=== PATIENT | male | born 1940 | race African-American/Black ===

== ENCOUNTER 2018-03-23 11:37 | Emergency (ER) | payer OTHER ==
--- NOTE | 2018-03-23 11:53 | ER Document Report ---
ED Neuro Symptoms/Deficit - General Stated Complaint: STROKE LIKE SYMPTOMS Time Seen by Provider: 03/23/18 11:44 TRAVEL OUTSIDE OF THE [place] IN LAST 30 DAYS: No - HPI Symptoms are: Constant Notes: Patient is a 77-year-old male that presents to the emergency department for chief complaint of stroke symptoms. She was last seen yesterday between 3 and 4 PM by family members behaving normally. Today he was riding his bike and a neighbor noticed that he was having a hard time. When neighbor went to check on him she noticed he was slurring his speech and seemed weak on his right side. She called EMS. the neighbor found patient altered at about 11 AM today. He has no history of stroke in the past. Family denies any recent head injuries or blood thinning medications. Patient is a phasic which is limiting HPI Past Medical History: Hypertension, BPH Past Surgical History: Lithotripsy Social History: Unknown Family History: Reviewed and noncontributory for presenting illness Allergies: Reviewed, see documented allergy list. REVIEW OF SYSTEMS: Unable to obtain review of systems because of patient's acute condition and aphasia PHYSICAL EXAMINATION: Vital signs reviewed, nursing noted reviewed. GENERAL: Well-appearing, well-nourished and in no acute distress. HEAD: Atraumatic, normocephalic. EYES: Eyes appear normal, extraocular movements intact, sclera anicteric, conjunctiva are normal. ENT: nares patent, oropharynx clear without exudates. Moist mucous membranes. NECK: Normal range of motion, supple without lymphadenopathy LUNGS: Breath sounds clear to auscultation bilaterally and equal. No wheezes rales or rhonchi. HEART: Regular rate and rhythm without murmurs ABDOMEN: Soft, nontender, normoactive bowel sounds. No rebound, guarding, or rigidity. No masses appreciated. EXTREMITIES: Nontender, good range of motion, no pitting or edema. NEUROLOGICAL: NIH equals 9 at 11:40 AM no focal neurological deficits. Numbness and weakness in right upper and lower extremity. Right lower facial paralysis. Severe aphasia. Mild dysarthria PSYCH: Normal mood, normal affect. SKIN: Warm, Dry, normal turgor, no rashes or lesions noted on exposed skin - Related Data Allergies/Adverse Reactions: No Known Allergies Allergy (Unverified 01/18/15 08:28) Past Medical History - Social History Smoking Status: Never Smoker Family History: Reviewed & Not Pertinent - Past Medical History Cardiac Medical History: Reports: Hx Hypercholesterolemia, Hx Hypertension Renal/ Medical History: Reports: Hx Kidney Stones Review of Systems - Review of Systems -: Yes ROS unobtainable due to patient's medical condition Physical Exam - Notes Notes: Dictated Course - Re-evaluation Re-evalutation: 03/23/18 11:56 Vitals reviewed. Nursing notes reviewed. Patient is outside the window for TPA because of unknown onset of symptoms. His last known normal was yesterday between 3 and 4 PM. 03/23/18 12:[address] brain showed possible left infarct that may be old or new. I discussed patient's care with Dr. Wright who wishes to wait on the final reading of patient CT Soha of head and neck prior to excepting patient for transport. On CT angios patient does have a M1 left MCA occlusion. He is within the 24- hour timeframe for clot retrieval. Case again Laboratory 03/23/18 03/23/18 03/23/18 11:54 11:54 11:54 WBC 9.1 RBC 5.13 Hgb 15.9 Hct 46.1 MCV 90 MCH 30.9 MCHC 34.4 RDW 14.0 Plt Count 218 Seg Neutrophils % 72.7 Lymphocytes % 20.2 Monocytes % 5.5 Eosinophils % 1.1 Basophils % 0.5 Absolute Neutrophils 6.6 Absolute Lymphocytes 1.8 Absolute Monocytes 0.5 Absolute Eosinophils 0.1 Absolute Basophils 0.0 PT 13.7 INR 1.00 APTT 31.7 Sodium 143.8 Potassium 4.3 Chloride 104 Carbon Dioxide 27 Anion Gap 13 BUN 22 H Creatinine 1.38 H Est GFR ( Amer) > 60 Est GFR (Non-Af Amer) 50 L Glucose 138 H Calcium 9.6 Total Bilirubin 1.0 Direct Bilirubin 0.3 Neonat Total Bilirubin Not Reportable Neonat Direct Bilirubin Not Reportable Neonat Indirect Bili Not Reportable AST 64 H ALT 50 Alkaline Phosphatase 94 Troponin I Total Protein 8.3 H Albumin 4.3 03/23/18 11:54 WBC RBC Hgb Hct MCV MCH MCHC RDW Plt Count Seg Neutrophils % Lymphocytes % Monocytes % Eosinophils % Basophils % Absolute Neutrophils Absolute Lymphocytes Absolute Monocytes Absolute Eosinophils Absolute Basophils PT INR APTT Sodium Potassium Chloride Carbon Dioxide Anion Gap BUN Creatinine Est GFR ( Amer) Est GFR (Non-Af Amer) Glucose Calcium Total Bilirubin Direct Bilirubin Neonat Total Bilirubin Neonat Direct Bilirubin Neonat Indirect Bili AST ALT Alkaline Phosphatase Troponin I < 0.012 Total Protein Albumin Head CT 03/23/18 11:40 IMPRESSION: CHRONIC CHANGES OF ATROPHY AND MICROVASCULAR ISCHEMIA. LACUNAR INFARCT IN THE LEFT INTERNAL CAPSULE WHICH MAY BE RECENT OR OLD. EVIDENCE OF ACUTE STROKE: NO. Head CTA 03/23/18 11:47 IMPRESSION: OCCLUSION OF THE M 1 SEGMENT OF THE LEFT MIDDLE CEREBRAL ARTERY DESCRIBED. Neck CTA 03/23/18 11:47 IMPRESSION: NORMAL CTA OF THE EXTRA-CRANIAL CAROTID AND VERTEBRAL ARTERIES. discussed with neurology at [facility] Dr. Wright who has accepted transfer. Patient will be transferred to [facility] by air for further neurologic evaluation. Patient's family in agreement with this plan. He is stable at time of transport. Laboratory 03/23/18 11:54 PT 13.7 INR 1.[address] 03/23/18 11:40 IMPRESSION: CHRONIC CHANGES OF ATROPHY AND MICROVASCULAR ISCHEMIA. LACUNAR INFARCT IN THE LEFT INTERNAL CAPSULE WHICH MAY BE RECENT OR OLD. EVIDENCE OF ACUTE STROKE: NO. 03/23/18 13:04 NIH at 1300 unchanged from initial and still 9 - Laboratory Result Diagrams: 03/23/18 11:54 03/23/18 11:54 - EKG Interpretation by Me Additional EKG results interpreted by me: 03/23/18 12:40 Interpreted by myself 1219: Sinus tachycardia, rate 106, normal axis, no ectopy, no ST elevation, normal QTC Critical Care Note - Critical Care Note Total time excluding time spent on procedures (mins): 35 - Large vessel occlusion and acute ischemic stroke. Multiple conversations with specialist. Potential for neurologic decompensation. ED NIH Stroke Scale - NIH Stroke Scale When completed:: Before Alteplase *: 1. NIH scale should be completed with appropriate accompanying assessment tools. *: 2. The NIH should reflect what the patient is capable of doing and should not be coached by the clinician. 1a. Level of Consciousness: 0=Alert;keenly responsive -: 1=Drowsy -: 2=Obtunded -: 3=Coma/unresponsive or reflex to noxious stimuli. 1a. Responses: 0 1b. Orientation Questions: a. What month is it? -: b. How old are you? -: 0=Answers both questions correctly. -: 1=Answers one question correctly or patient is intubated or has orotracheal trauma. -: 2=Answers neither question correctly. 1b. Responses: 1 1c. Response to commands: a. Open and close eyes? -: b. Wool Presser and release hand? -: Credit is given despite weakness. Demonstration of task is permitted. Substitute command if hands cannot be used. -: 0=Performs both tasks correctly -: 1=Performs one task correctly -: 2=Performs neither task correctly 1c. Responses: 0 2. Gaze: Establish eye contact and instruct patient to "Follow my finger" -: 0=Normal -: 1=Partial gaze palsy. Gaze is abnormal in one or both eyes, but where forced deviation or total gaze paresis is not present. -: 2=Forced deviation or total gaze paresis. 2. Responses: 0 3. Visual Leon: Sees fingers in all four quadrants. -: 0=No visual loss. -: 1=Partial hemianopsia. -: 2=Complete hemianopsia. -: 3=Bilateral hemianopsia (including Cortical blindness) 3. Responses: 0 4. Facial Movement: Instruct patient to: -: a. Show me your teeth -: b. Raise your eyebrows -: c. Close your eyes -: d. Smile -: 0=Normal symmetrical movement -: 1=Minor paralysis (flattened nasolabial fold, asymmetry on smiling). -: 2=Partial paralysis (total or near total paralysis of lower face). -: 3=Complete paralysis of upper and lower face 4. Responses: 2 5. Motor functions (left arm): Alternate sides and extend each arm with palms down (90 degrees if sitting or 45 degrees for supine). -: 0=No drift;limb holds for full 10 seconds. -: 1=Drift; limb holds but drifts down before full 10 seconds, but does not hit bed. -: 2=Some effort against gravity; limb cannot get to or maintain position. -: 3=No effort against gravity; limb falls. -: 4=No movement. -: UN=Amputation, joint fusion, explain in comments. 5. Responses (left arm): 0 5. Motor Functions (right arm): Alternate sides and extend each arm with palms down (90 degrees if sitting or 45 degrees for supine). -: 0=No drift;limb holds for full 10 seconds. -: 1=Drift; limb holds but drifts down before full 10 seconds, but does not hit bed. -: 2=Some effort against gravity; limb cannot get to or maintain position. -: 3=No effort against gravity; limb falls. -: 4=No movement. -: UN=Amputation, joint fusion, explain in comments. 5. Responses (right arm): 1 6. Motor Functions (left leg): With patient lying supine, alternate sides and extend each leg (30 degrees always while supine). -: 0=No drift, leg holds position for full 5 seconds -: 1=Drift; leg falls before full 5 seconds but does not hit bed. -: 2=Some effort against gravity, leg falls to bed but some effort against gravity. -: 3=No effort against gravity, leg falls to bed immediately. -: 4=No movement. -: UN=Amputation, joint fusion; explain in comments. 6. Responses (left leg): 0 6. Motor Functions (right leg): With patient lying supine, alternate sides and extend each leg (30 degrees always while supine). -: 0=No drift, leg holds position for full 5 seconds -: 1=Drift; leg falls before full 5 seconds but does not hit bed. -: 2=Some effort against gravity, leg falls to bed but some effort against gravity. -: 3=No effort against gravity, leg falls to bed immediately. -: 4=No movement. -: UN=Amputation, joint fusion; explain in comments. 6. Responses (right leg): 1 7. Limb Ataxia: With eyes open instruct patient to: -: a. "Touch your finger to your nose". -: b. "Touch your heel to your de la garza" -: 0=Absent -: 1=Present in one limb. -: 2=Present in two limbs. -: UN=Amputation or joint fusion; explain in comments. 7. Responses: 0 8. Sensory: Test sensation using pinprick or noxious stimuli. Test as many body parts as possible. -: 0=Normal;no sensory loss -: 1=Mile to moderate sensory loss (patient feels pin prick but is less sharp on affected side). -: 2=Severe or total sensory loss. 8. Responses: 1 9. Best Language: Instruct patient to: -: a. "Describe what you see in this picture." -: b. "Name the items in this picture." -: c. "Read these sentences." -: 0=No aphasia, normal -: 1=Mild to moderate aphasia. -: 2=Severe aphasia -: 3=Mute, global aphasia, no usable speech or auditory comprehension. 9. Responses: 2 10. Articulation, Dysarthia: Instruct patient to: -: "Read these words" or "Repeat these words" -: 0=Normal -: 1=Mild to moderate; patient may slur some words but can be understood without difficulty. -: 2=Severe; patients speech so slurred as to be unintelligible in the absence of dysphasia. -: UN=Intubated or other physical barrier, explain in comments. 10. Responses: 1 11. Extinction or inattention: 0=No abnormality -: 1= Visual, tactile, auditory, spatial, or personal inattention or extinction to bilateral simulation in one or the sensory modalities. -: 2=Profound leon-inattention or leon-inattention to more than one modality; does not recognize own hand. 11. Responses: 0 - NIH at 1140 Total Score: 9 Discharge - Discharge Clinical Impression: Stroke Qualifiers: CVA mechanism: unspecified Qualified Code(s): I63.9 - Cerebral infarction, unspecified Condition: Stable Disposition: [facility]
[2018-03-23 12:19] LABS: PARTIAL THROMBOPLASTIN TIME 31.7 SEC (23.5-35.8)
[2018-03-23 12:20] LABS: PROTHROMBIN TIME 13.7 SEC (11.4-15.4)
--- NOTE | 2018-03-23 12:25 | RADIOLOGY REPORT (SQ) ---
EXAM DESCRIPTION: CT HEAD WITHOUT COMPLETED DATE/TIME: 03/23/2018 11:50 am REASON FOR STUDY: bed 3 stroke alert COMPARISON: None. TECHNIQUE: Axial images acquired through the brain without intravenous contrast. Images reviewed wi th bone, brain and subdural windows. Additional sagittal and coronal reconstructions were generated. Images stored on PACS. All CT scanners at this facility use dose modulation, iterative reconstruction, and/or weight based d osing when appropriate to reduce radiation dose to as low as reasonably achievable (ALARA). [facility]: Dose Right [facility]: CareDose [facility]: Dose Right [facility]: Teradose 4D [facility]: [employer] [facility] [employer] [facility] RADIATION DOSE: CT Rad equipment meets quality standard of care and radiation dose reduction techniq ues were employed. CTDIvol: 53.2 mGy. DLP: 1044 mGy-cm.mGy. LIMITATIONS: None. FINDINGS: VENTRICLES: Prominent. CEREBRUM: No masses. No hemorrhage. No midline shift. Areas of low density in the white matter mos t likely due to chronic micro-vascular ischemic change. Area of decreased attenuation in the anterio r limb of the left internal capsule. CEREBELLUM: No masses. No hemorrhage. No alteration of density. No evidence for acute infarction. EXTRAAXIAL SPACES: Age-related involutional change. No fluid collections. No masses. ORBITS AND GLOBE: No intra- or extraconal masses. Normal contour of globe without masses. CALVARIUM: No fracture. PARANASAL SINUSES: No fluid or mucosal thickening. SOFT TISSUES: No mass or hematoma. OTHER: No other significant finding. IMPRESSION: CHRONIC CHANGES OF ATROPHY AND MICROVASCULAR ISCHEMIA. LACUNAR INFARCT IN THE LEFT INTE RNAL CAPSULE WHICH MAY BE RECENT OR OLD. EVIDENCE OF ACUTE STROKE: NO. COMMENT: Pertinent positive or negative findings of the imaging study reported as a CRITICAL EXAM t o ER PROVIDER at12:18 on 03/23/2018. Category of Critical Exam: Stroke protocol. TECHNICAL DOCUMENTATION: JOB ID: [id number] Quality ID # 436: Final reports with documentation of one or more dose reduction techniques (e.g., Au tomated exposure control, adjustment of the mA and/or kV according to patient size, use of iterative reconstruction technique) 2010 [employer]- All Rights Reserved Reading location - IP/workstation name: [email or web address]
[2018-03-23 12:40] LABS: ALANINE AMINOTRANSFERASE 50 U/L (21-72); ALBUMIN 4.3 g/dL (3.5-5.0); ALKALINE PHOSPHATASE 94 U/L (38-126); ANION GAP 13 (5-19); ASPARTATE AMINO TRANSFERASE 64 U/L (17-59); BILIRUBIN,DIRECT 0.3 mg/dL (0.0-0.4); BLOOD UREA NITROGEN 22 mg/dL (7-20); CALCIUM 9.6 mg/dL (8.4-10.2); CARBON DIOXIDE 27 mmol/L (22-30); CHLORIDE 104 mmol/L (98-107); GLUCOSE 138 mg/dL (75-110); POTASSIUM 4.3 mmol/L (3.6-5.0); SODIUM 143.8 mmol/L (137-145); TOTAL PROTEIN 8.3 g/dL (6.3-8.2)
[2018-03-23 12:45] LABS: ABSOLUTE EOSINOPHILS # (AUTO) 0.1 10^3/uL (0.0-0.6); ABSOLUTE LYMPHOCYTES (AUTO) 1.8 10^3/uL (0.5-4.7); ABSOLUTE MONOCYTES (AUTO) 0.5 10^3/uL (0.1-1.4); ABSOLUTE NEUT (AUTO) 6.6 10^3/uL (1.7-8.2); BASOPHILS % (AUTO) 0.5 % (0-2); EOSINOPHILS % (AUTO) 1.1 % (0-6); HEMATOCRIT 46.1 % (37.9-51.0); HEMOGLOBIN 15.9 g/dL (13.5-17.0); LYMPHOCYTES % (AUTO) 20.2 % (13-45); MEAN CORPUSCULAR HEMOGLOBIN 30.9 pg (27.0-33.4); MEAN CORPUSCULAR HGB CONC 34.4 g/dL (32.0-36.0); MEAN CORPUSCULAR VOLUME 90 fl (80-97); MONOCYTES % (AUTO) 5.5 % (3-13); PLATELET COUNT 218 10^3/uL (150-450); RED BLOOD COUNT 5.13 10^6/uL (4.35-5.55); SEGMENTED NEUTROPHILS % (AUTO) 72.7 % (42-78); TOTAL CELLS COUNTED % (AUTO) 100 %; WHITE BLOOD COUNT 9.1 10^3/uL (4.0-10.5)
--- NOTE | 2018-03-23 12:46 | RADIOLOGY REPORT (SQ) ---
EXAM DESCRIPTION: CTA HEAD COMPLETED DATE/TIME: 03/23/2018 12:15 pm REASON FOR STUDY: stroke COMPARISON: None. TECHNIQUE: Post IV contrast scanning, thin section axial imaging through the brain to evaluate the a rterial structures. Source and MIP images are saved and reviewed on PACS. Advanced 3D imaging as volume-rendering, MIPs, SSD performed? yes All CT scanners at this facility use dose modulation, iterative reconstruction, and/or weight based d osing when appropriate to reduce radiation dose to as low as reasonably achievable (ALARA). [facility]: Dose Right [facility]: CareDose [facility]: Dose Right [facility]: Teradose 4D [facility]: [employer] CONTRAST TYPE AND DOSE: 69 mL Omnipaque 350- low osmolar. RENAL FUNCTION: Not available. LIMITATIONS: None. FINDINGS: NOORVIK OF PRINGLE: There is occlusion of the M 1 segment of the left middle cerebral artery , approximately 6 mm from the takeoff from the [place]. The contrast in the vessel ends abr uptly. There is some contrast present in the more distal branches of the left middle cerebral artery presumably due to collateral flow. The right middle cerebral artery and right and left anterior cer ebral arteries are patent. POSTERIOR CIRCULATION: The distal vertebral arteries are patent as is the basilar artery. No aneurysm . BRAIN: No gross enhancing lesions as visualized. The superior cerebral hemispheres are not included in the field of view. BONES: Intact as visualized. SINUSES: No fluid or mucosal thickening. OTHER: No other significant finding. IMPRESSION: OCCLUSION OF THE M 1 SEGMENT OF THE LEFT MIDDLE CEREBRAL ARTERY DESCRIBED. COMMENT: Pertinent findings on the imaging study reported as a CRITICAL RESULT to TALHA MOORE DO at1 2:39 on 03/23/2018. Category of Critical Result: Occlusion of the left middle cerebral artery. TECHNICAL DOCUMENTATION: JOB ID: [id number] Quality ID # [id number]: Final reports with documentation of one or more dose reduction techniques (e.g., Au tomated exposure control, adjustment of the mA and/or kV according to patient size, use of iterative reconstruction technique) 2010 [employer]- All Rights Reserved Reading location - IP/workstation name: [email or web address]
--- NOTE | 2018-03-23 12:49 | RADIOLOGY REPORT (SQ) ---
EXAM DESCRIPTION: CTA NECK COMPLETED DATE/TIME: 03/23/2018 12:15 pm REASON FOR STUDY: stroke COMPARISON: None. TECHNIQUE: Axial dynamic scanning technique with dynamic contrast enhancement through the extra-power crane operator nial carotid and vertebral arteries. Multiplanar reconstruction. 3-D MIPS and Volume-rendered imag es acquired at the workstation and saved to PACS. Images are reviewed in soft tissue, bone, lung w indows. All CT scanners at this facility use dose modulation, iterative reconstruction, and/or weight based d osing when appropriate to reduce radiation dose to as low as reasonably achievable (ALARA). [facility]: Dose Right [facility]: CareDose [facility]: Dose Right [facility]: Teradose 4D [facility]: [employer] CONTRAST TYPE AND DOSE: contrast/concentration: Isovue 350.00 mg/ml; Total Contrast Delivered: 69.0 ml; Total Saline Delivered: 75.0 ml RENAL FUNCTION: Not available. LIMITATIONS: None. FINDINGS: AORTIC ARCH: Normal three-vessel origin. Bilateral subclavian arteries are patent. No d issection. RIGHT CAROTIDS: Patent common, internal and external carotid arteries without suggestion of significa nt stenosis or irregular plaque. No dissection. RIGHT VERTEBRAL: Patent. No dissection. LEFT CAROTIDS: Patent common, internal and external carotid arteries without suggestion of significan t stenosis or irregular plaque. No dissection. LEFT VERTEBRAL: Patent. No dissection. OTHER: No other significant finding. OTHER: 3-D reconstructions confirm findings. IMPRESSION: NORMAL CTA OF THE EXTRA-CRANIAL CAROTID AND VERTEBRAL ARTERIES. COMMENT: Quality ID #[id number]: Measurements of distal internal carotid diameter were used as the denomina tor for stenosis measurement. TECHNICAL DOCUMENTATION: JOB ID: [id number] Quality ID # 436: Final reports with documentation of one or more dose reduction techniques (e.g., Au tomated exposure control, adjustment of the mA and/or kV according to patient size, use of iterative reconstruction technique) 2010 [employer]- All Rights Reserved Reading location - IP/workstation name: [email or web address]
--- NOTE | 2018-03-23 13:11 | RADIOLOGY REPORT (SQ) ---
EXAM DESCRIPTION: CHEST SINGLE VIEW COMPLETED DATE/TIME: 03/23/2018 11:51 am REASON FOR STUDY: bed 3 stroke alert COMPARISON: None. EXAM PARAMETERS: NUMBER OF VIEWS: One view. TECHNIQUE: Single frontal radiographic view of the chest acquired. RADIATION DOSE: NA LIMITATIONS: None. FINDINGS: LUNGS AND PLEURA: Limited opacification in the left base. The left hemidiaphragm remains well-defined. MEDIASTINUM AND HILAR STRUCTURES: No masses. Contour normal. HEART AND VASCULAR STRUCTURES: Heart normal in size. Normal vasculature. BONES: No acute findings. HARDWARE: None in the chest. OTHER: No other significant finding. IMPRESSION: Cannot exclude a minimal left lower lobe pneumonia. TECHNICAL DOCUMENTATION: JOB ID: [id number] [employer]- All Rights Reserved Reading location - IP/workstation name: [email or web address]
[2018-03-23 13:53] VITALS: BP 146/96
--- NOTE | 2018-03-23 21:55 | EKG REPORT ---
SEVERITY:- OTHERWISE NORMAL ECG - SINUS TACHYCARDIA : Confirmed by: Cecilia Maddox MD 23-Mar-2018 21:54:59
== END 2018-03-23 13:21 | disposition short-term general hospital (02) ==
LOC: ER 11:37
DX: I63.512 Cerebral infarction due to unspecified occlusion or stenosis of left middle cerebral artery (principal); R47.01 Aphasia; G81.91 Hemiplegia, unspecified affecting right dominant side; R20.0 Anesthesia of skin; I10 Essential (primary) hypertension
CPT/HCPCS: 36415; 70450; 70496; 70498; 71045; 80053; 84484; 85025; 85610; 85730; 93005; 93010; 99285

== ENCOUNTER 2018-05-25 22:45 | Emergency (ER) | payer OTHER, MEDICARE, MEDICAID ==
--- NOTE | 2018-05-25 23:14 | ER Document Report ---
ED GI/ - General Chief Complaint: Urinary Problem Stated Complaint: URINATION PROBLEMS Time Seen by Provider: 05/25/18 23:13 Mode of Arrival: Ambulatory Information source: Patient, Relative Notes: Patient is a 77-year-old male with recent stroke who presents with urinary retention. Patient initially had to be cathed twice daily to urinate, approximately 3 weeks ago he had a Batres catheter inserted. That was removed today by order of his primary physician. He now presents with the inability to urinate for the past 12 hours. He denies pain, no nausea or vomiting, no recent fevers or chills, no injury to his knowledge. He denies pain or discharge from the penis. TRAVEL OUTSIDE OF THE [place] IN LAST 30 DAYS: No - HPI Patient complains to provider of: Urinary retention Onset: Other - "Weeks ago" Timing/Duration: Constant, Persistent Quality of pain: Achy Severity at maximum: Mild Severity in ED: None Pain Level: Denies Location: Suprapubic Sexual history: Inactive Associated symptoms: None Exacerbated by: Denies Relieved by: Denies Similar symptoms previously: Yes Recently seen / treated by doctor: Yes - Related Data Allergies/Adverse Reactions: No Known Allergies Allergy (Unverified 01/18/15 08:28) Past Medical History - General Information source: Patient, Relative - Social History Smoking Status: Former Smoker Chew tobacco use (# tins/day): No Frequency of alcohol use: None Drug Abuse: None Lives with: Family Family History: Reviewed & Not Pertinent Patient has suicidal ideation: No Patient has homicidal ideation: No - Past Medical History Cardiac Medical History: Reports: Hx Hypercholesterolemia, Hx Hypertension Pulmonary Medical History: Reports: None EENT Medical History: Reports: None Neurological Medical History: Reports: Hx Cerebrovascular Accident Renal/ Medical History: Reports: Hx Kidney Stones. Denies: Hx Peritoneal Dialysis Malignancy Medical History: Reports None GI Medical History: Reports: None Musculoskeletal Medical History: Reports None Skin Medical History: Reports None Psychiatric Medical History: Reports: None Traumatic Medical History: Reports: None Infectious Medical History: Reports: None Surgical Hx: Negative - Immunizations Immunizations up to date: Yes Hx Diphtheria, Pertussis, Tetanus Vaccination: Yes History of Influenza Vaccine for 02/2017 - 07/2017 Season: Unknown Review of Systems - Review of Systems Constitutional: No symptoms reported EENT: No symptoms reported Cardiovascular: No symptoms reported Respiratory: No symptoms reported Gastrointestinal: No symptoms reported Genitourinary: See HPI, Retention Male Genitourinary: No symptoms reported Musculoskeletal: No symptoms reported Skin: No symptoms reported Hematologic/Lymphatic: No symptoms reported Neurological/Psychological: No symptoms reported -: Yes All other systems reviewed and negative Physical Exam - Vital signs Vitals: Temp Pulse BP Pulse Ox 97.6 F 124 H 108/77 97 05/25/18 22:49 05/25/18 22:49 05/25/18 22:49 05/25/18 22:49 Interpretation: Normal - Notes Notes: Normal appearing in no acute distress - General General appearance: Appears well, Alert In distress: None - HEENT Head: Normocephalic, Atraumatic Eyes: Normal Pupils: PERRL - Respiratory Respiratory status: No respiratory distress Chest status: Nontender Breath sounds: Normal Chest palpation: Normal - Cardiovascular Rhythm: Regular Heart sounds: Normal auscultation Murmur: No - Abdominal Inspection: Normal Distension: No distension Bowel sounds: Normal Tenderness: Nontender Organomegaly: No organomegaly - Rectal Notes: Deferred - Genitourinary Inspection: Normal Tenderness: Nontender Scrotum: Normal - Back Back: Normal, Nontender - Extremities General upper extremity: Normal inspection, Nontender, Normal color, Normal ROM, Normal temperature General lower extremity: Normal inspection, Nontender, Normal color, Normal ROM, Normal temperature, Normal weight bearing. No: Davian's sign - Neurological Neuro grossly intact: Yes Cognition: Normal Orientation: AAOx4 Brenda Coma Scale Eye Opening: Spontaneous Brenda Coma Scale Verbal: Oriented Brenda Coma Scale Motor: Obeys Commands Brenda Coma Scale Total: 15 Speech: Normal Motor strength normal: LUE, RUE, LLE, RLE Sensory: Normal - Psychological Associated symptoms: Normal affect, Normal mood - Skin Skin Temperature: Warm Skin Moisture: Dry Skin Color: Normal Course - Re-evaluation Re-evalutation: 05/26/18 00:09 Most likely secondary to urinary retention from his previous medical issues, possible neurogenic bladder versus chronic urinary retention. Patient will have Batres catheter inserted and will await urinalysis. 05/26/18 01:49 Urine is negative, Batres catheter has been inserted and the patient is improved. He will be discharged home with return precautions and urology follow-up. But the patient and his family voice understanding and agreed with the plan. - Vital Signs Vital signs: Temp Pulse Resp BP Pulse Ox 97.5 F 99 17 123/76 91 L 05/26/18 01:37 05/26/18 01:37 05/26/18 01:37 05/26/18 01:37 05/26/18 01:37 - Laboratory Laboratory results interpreted by me: 05/25/18 23:30 Urine Urobilinogen 4.0 H Urine Ascorbic Acid 40 H Urine is negative for infection Discharge - Discharge Clinical Impression: Urinary retention Condition: Good Disposition: HOME, SELF-CARE Instructions: Urinary Retention ([facility]) Additional Instructions: Please follow-up with your primary physician and urology as instructed. Return to the emergency department immediately if you experience the inability to urinate, if you see large amount of blood or blood clots in your catheter bag, or have any other concerning symptom. Referrals: ODILON YANG DO [NO LOCAL MD] - Follow up as needed Print Language: Danish
[2018-05-26 00:24] LABS: APPEARANCE,URINE CLEAR; BILIRUBIN,URINE NEGATIVE (NEGATIVE); COLOR,URINE YELLOW; GLUCOSE, URINE NEGATIVE (NEGATIVE); KETONES,URINE NEGATIVE (NEGATIVE); LEUKOCYTE ESTERASE,URINE NEGATIVE (NEGATIVE); NITRITE,URINE NEGATIVE (NEGATIVE); PROTEIN,URINE NEGATIVE (NEGATIVE); URINE SPECIFIC GRAVITY 1.012
[2018-05-26 01:41] VITALS: BP 123/76
== END 2018-05-26 01:57 | disposition home or self-care (01) ==
LOC: ER 22:45
DX: R33.9 Retention of urine, unspecified (principal); I10 Essential (primary) hypertension; Z86.73 Personal history of transient ischemic attack (TIA), and cerebral infarction without residual deficits; Z87.891 Personal history of nicotine dependence; Z87.442 Personal history of urinary calculi
CPT/HCPCS: 51702; 81001; 87086; 99283

== ENCOUNTER 2018-06-08 17:23 | Emergency (ER) | payer OTHER, MEDICARE, MEDICAID ==
--- NOTE | 2018-06-08 18:15 | ER Document Report ---
ED Medical Screen (RME) - General Chief Complaint: Other Stated Complaint: POSSIBLE BLOOD CLOT Time Seen by Provider: 06/08/18 18:07 Notes: 77-year-old male patient suffered a stroke on 05/23/2018 with right-sided deficit. Batres catheter for urinary retention. Today home health noted diminished breath sounds, low-grade fever, and swelling to the right lower extremity with pain in the foot is moved. He is sent here for evaluation and to include a venous Doppler to rule out blood clots. I have greeted and performed a rapid initial assessment of this patient. A comprehensive ED assessment and evaluation of the patient, analysis of test results and completion of the medical decision making process will be conducted by additional ED providers. TRAVEL OUTSIDE OF THE [place] IN LAST 30 DAYS: No - Related Data Allergies/Adverse Reactions: No Known Allergies Allergy (Unverified 01/18/15 08:28) Past Medical History - Past Medical History Cardiac Medical History: Reports: Hx Hypercholesterolemia, Hx Hypertension Neurological Medical History: Reports: Hx Cerebrovascular Accident Renal/ Medical History: Reports: Hx Kidney Stones. Denies: Hx Peritoneal Dialysis - Immunizations Immunizations up to date: Yes Hx Diphtheria, Pertussis, Tetanus Vaccination: Yes History of Influenza Vaccine for 02/2017 - 07/2017 Season: Unknown Physical Exam - Vital signs Vitals: Temp Pulse Resp BP Pulse Ox 97.2 F 128 H 16 119/86 H 94 06/08/18 17:36 06/08/18 17:36 06/08/18 17:36 06/08/18 17:36 06/08/18 17:36 Course - Vital Signs Vital signs: Temp Pulse Resp BP Pulse Ox 97.2 F 128 H 16 119/86 H 94 06/08/18 17:36 06/08/18 17:36 06/08/18 17:36 06/08/18 17:36 06/08/18 17:36 Doctor's Discharge - Discharge Referrals: [facility] [Primary Care Provider] - Follow up as needed
[2018-06-08 19:29] LABS: ABSOLUTE BASOPHILS # (AUTO) 0.1 10^3/uL (0.0-0.2); ABSOLUTE EOSINOPHILS # (AUTO) 0.3 10^3/uL (0.0-0.6); ABSOLUTE LYMPHOCYTES (AUTO) 1.8 10^3/uL (0.5-4.7); ABSOLUTE MONOCYTES (AUTO) 0.5 10^3/uL (0.1-1.4); ABSOLUTE NEUT (AUTO) 5.6 10^3/uL (1.7-8.2); BASOPHILS % (AUTO) 0.9 % (0-2); EOSINOPHILS % (AUTO) 3.9 % (0-6); HEMATOCRIT 37.4 % (37.9-51.0); HEMOGLOBIN 12.5 g/dL (13.5-17.0); LYMPHOCYTES % (AUTO) 21.8 % (13-45); MEAN CORPUSCULAR HEMOGLOBIN 28.8 pg (27.0-33.4); MEAN CORPUSCULAR HGB CONC 33.4 g/dL (32.0-36.0); MEAN CORPUSCULAR VOLUME 86 fl (80-97); MONOCYTES % (AUTO) 6.1 % (3-13); PLATELET COUNT 264 10^3/uL (150-450); RED BLOOD COUNT 4.34 10^6/uL (4.35-5.55); RED CELL DISTRIBUTION WIDTH 15.5 % (11.5-14.0); SEGMENTED NEUTROPHILS % (AUTO) 67.3 % (42-78); TOTAL CELLS COUNTED % (AUTO) 100 %; WHITE BLOOD COUNT 8.3 10^3/uL (4.0-10.5)
[2018-06-08 19:32] LABS: INTERNATIONAL RATION (INR) 1.09; PROTHROMBIN TIME 14.7 SEC (11.4-15.4)
[2018-06-08 19:44] LABS: ALANINE AMINOTRANSFERASE 34 U/L (21-72); ALKALINE PHOSPHATASE 165 U/L (38-126); ANION GAP 10 (5-19); ASPARTATE AMINO TRANSFERASE 27 U/L (17-59); BILIRUBIN,DIRECT 0.2 mg/dL (0.0-0.4); BILIRUBIN,TOTAL 0.6 mg/dL (0.2-1.3); BLOOD UREA NITROGEN 10 mg/dL (7-20); CALCIUM 9.4 mg/dL (8.4-10.2); CARBON DIOXIDE 27 mmol/L (22-30); CHLORIDE 104 mmol/L (98-107); CREATINE KINASE 127 U/L (55-170); GLUCOSE 114 mg/dL (75-110); POTASSIUM 3.8 mmol/L (3.6-5.0); SODIUM 140.5 mmol/L (137-145); TOTAL PROTEIN 7.7 g/dL (6.3-8.2)
--- NOTE | 2018-06-08 20:32 | RADIOLOGY REPORT (SQ) ---
CT CHEST ANGIOGRAPHY WITHOUT THEN WITH IV CONTRAST HISTORY: Shortness of breath. COMPARISON: None. TECHNIQUE: CT angiogram of the chest with IV contrast. 3-D MIP images were obtained in coronal and sagittal reconstructions. This exam was performed according to our departmental dose-optimization program, which includes automated exposure control, adjustment of the mA and/or kV according to patient size and/or use of iterative reconstruction technique. FINDINGS: The thyroid gland is unremarkable. No mediastinal, hilar, or axillary adenopathy is seen. The heart size is normal. No pericardial effusion is seen. There is no thoracic aortic dissection. No filling defects are seen in the pulmonary trunk or the left and right main pulmonary artery. There is limited evaluation of the segmental branches due to motion artifact. There are scattered atelectasis at the lung bases. No pleural effusion or The upper abdomen demonstrates a percutaneous gastrostomy tube in situ There are no suspicious osseous lesions identified. IMPRESSION: 1. No central pulmonary embolism. 2. Mild atelectasis in the lower lobes.
--- NOTE | 2018-06-08 21:13 | ER Document Report ---
ED General - General Chief Complaint: Other Stated Complaint: POSSIBLE BLOOD CLOT Time Seen by Provider: 06/08/18 18:07 Cannot obtain history due to: Other - Expressive aphasia Notes: Patient is a 77-year-old male with a past medical history of CVA with residual expressive aphasia, right-sided paresis, presents with family due to concerns of increasing right lower extremity edema and pain. The patient is unable to characterize his symptoms but family states that he has been complaining of more pain to the area and was referred to the emergency department due to concerns of a possible DVT. No history of similar episodes in the past. Nothing seems to improve or worsen the patient's symptoms. History is otherwise limited secondary to the patient's aphasia TRAVEL OUTSIDE OF THE [place] IN LAST 30 DAYS: No - Related Data Allergies/Adverse Reactions: No Known Allergies Allergy (Unverified 01/18/15 08:28) Past Medical History - General Information source: Relative Cannot obtain history due to: Other - Social History Smoking Status: Never Smoker Chew tobacco use (# tins/day): No Frequency of alcohol use: None Drug Abuse: None Lives with: Family Family History: Reviewed & Not Pertinent Patient has suicidal ideation: No Patient has homicidal ideation: No - Past Medical History Cardiac Medical History: Reports: Hx Hypercholesterolemia, Hx Hypertension Neurological Medical History: Reports: Hx Cerebrovascular Accident Renal/ Medical History: Reports: Hx Kidney Stones. Denies: Hx Peritoneal Dialysis - Immunizations Immunizations up to date: Yes Hx Diphtheria, Pertussis, Tetanus Vaccination: Yes Review of Systems - Review of Systems -: Yes ROS unobtainable due to patient's medical condition Physical Exam - Vital signs Vitals: Temp Pulse Resp BP Pulse Ox 97.2 F 128 H 16 119/86 H 94 06/08/18 17:36 06/08/18 17:36 06/08/18 17:36 06/08/18 17:36 06/08/18 17:36 Interpretation: Tachycardic Notes: PHYSICAL EXAMINATION: GENERAL: Appears somewhat frail HEAD: Atraumatic, normocephalic. EYES: Pupils equal round and reactive to light, extraocular movements intact, sclera anicteric, conjunctiva are normal. ENT: nares patent, oropharynx clear without exudates. Moist mucous membranes. NECK: Normal range of motion, supple without lymphadenopathy LUNGS: Breath sounds clear to auscultation bilaterally and equal. No wheezes rales or rhonchi. HEART: Regular tachycardia without murmurs ABDOMEN: Soft, nontender, normoactive bowel sounds. No guarding, no rebound. No masses appreciated. EXTREMITIES: Very mild edema and swelling to the right distal lower extremity with pain on palpation of the calf. Exam examination otherwise unremarkable. NEUROLOGICAL: Right-sided hemiparesis at baseline. Expressive aphasia present. PSYCH: Limited assessment secondary to aphasia SKIN: Warm, Dry, normal turgor, no rashes or lesions noted. Course - Re-evaluation Re-evalutation: 06/08/18 21:12 Patient presents with complaints of increasing right lower extremity pain and swelling over the last 2 days. Primary concern was for the possible diagnosis of a DVT. Venous Doppler without any evidence of acute DVT on initial read. CT of the chest was obtained as the patient did have some leg swelling, mild edema to the right side and was notably tachycardic at time of presentation. CT of the chest is clear. Patient is otherwise at his baseline per family. Suspect likely moderate contracture of the extremity secondary to decreased usage from prior CVA. Tachycardia has resolved with oral fluids. At this time will discharge with return precautions and follow-up recommendations. Verbal d ischarge instructions given a the bedside and opportunity for questions given. Medication warnings reviewed. Family is in agreement with this plan and has verbalized understanding of return precautions and the need for primary care follow-up in the next 24-72 hours. - Vital Signs Vital signs: Temp Pulse Resp BP Pulse Ox 98.1 F 128 H 19 133/80 H 95 06/08/18 21:15 06/08/18 17:36 06/08/18 21:00 06/08/18 21:00 06/08/18 21:00 - Laboratory Result Diagrams: 06/08/18 19:11 06/08/18 19:11 Laboratory results interpreted by me: 06/08/18 06/08/18 19:11 19:11 RBC 4.34 L Hgb 12.5 L Hct 37.4 L RDW 15.5 H Glucose 114 H Alkaline Phosphatase 165 H - Diagnostic Test Radiology reviewed: Reports reviewed Discharge - Discharge Clinical Impression: Left leg pain, Left leg swelling, Tachycardia Condition: Stable Disposition: HOME, SELF-CARE Additional Instructions: The ultrasound does not show any evidence of a blood clot in your leg and the CAT scan your chest is likewise normal. Please follow-up with your physical therapist and primary doctor regarding your leg pain. Return if you have worsening swelling, become short of breath, have persistent vomiting, or have any other symptoms that are worrisome to you. Referrals: [facility] [Primary Care Provider] - Follow up as needed
[2018-06-08 21:17] VITALS: BP 133/80
--- NOTE | 2018-06-09 09:44 | XCELERA REPORT ---
[address] [place] [facility] [address] Lower Extremity Venous Evaluation Procedure: Color flow and duplex imaging of the veins of the right lower extremity as well as the left Common Femoral vein. Right Sided Venous Evaluation Normal vessel filling wall to wall, compression and augmentation as well as Colour flow down to the infrageniculate veins. Left Sided Venous Evaluation The left common femoral vein is fully compressible. Spontaneous and phasic flow is present in the left common femoral vein. Interpretation Summary No duplex evidence of DVT or obstruction in the right lower extremity nor in the left Common Femoral vein. Name: CARIDAD MORALES Age: 77 yrs Gender: Male : 1940 Patient Status: Emergency Patient Location: ER Study Date: 06/08/2018 06:48 PM Reason For Study: Right leg pain and swelling Ordering Physician: ASHLEY OG Performed By: Krysten Mulligan : ASHLEY OG > Marcin Phan
== END 2018-06-08 21:25 | disposition home or self-care (01) ==
LOC: ER 17:23
DX: M79.605 Pain in left leg (principal); M79.89 Other specified soft tissue disorders; R00.0 Tachycardia, unspecified; E78.00 Pure hypercholesterolemia, unspecified; I10 Essential (primary) hypertension; I69.920 Aphasia following unspecified cerebrovascular disease; I69.951 Hemiplegia and hemiparesis following unspecified cerebrovascular disease affecting right dominant side; Z87.442 Personal history of urinary calculi
CPT/HCPCS: 36415; 71275; 80053; 82550; 85025; 85610; 85730; 93971; 99285

== ENCOUNTER → 2019-01-12 | Outpatient (CLI) | payer MEDICARE, MEDICAID ==
--- NOTE | 2019-01-12 17:23 | RADIOLOGY REPORT (SQ) ---
EXAM DESCRIPTION: CHEST 2 VIEWS COMPLETED DATE/TIME: 01/12/2019 5:08 pm REASON FOR STUDY: J06.9 ACUTE UPPER RESPIRATORY INFECTION, UNSPECIFIED COMPARISON: None. EXAM PARAMETERS: NUMBER OF VIEWS: two views TECHNIQUE: Digital Frontal and Lateral radiographic views of the chest acquired. RADIATION DOSE: NA LIMITATIONS: none FINDINGS: LUNGS AND PLEURA: No opacities, masses or pneumothorax. No pleural effusion. MEDIASTINUM AND HILAR STRUCTURES: No masses or contour abnormalities. HEART AND VASCULAR STRUCTURES: Heart normal size. No evidence for failure. BONES: No acute findings. HARDWARE: None in the chest. OTHER: No other significant finding. IMPRESSION: NO ACUTE RADIOGRAPHIC FINDING IN THE CHEST. TECHNICAL DOCUMENTATION: JOB ID: [id number] [employer]- All Rights Reserved Reading location - IP/workstation name: [email or web address]
== END ==
LOC: RAD 16:45
PROVIDERS: ATTEND Internal Medicine Geriatric Medicine
DX: J06.9 Acute upper respiratory infection, unspecified (principal)
CPT/HCPCS: 71046